=== PATIENT | male | born 1965 | race Caucasian/White ===

== ENCOUNTER 2017-11-11 14:19 | Emergency (ER) | payer OTHER, SELFPAY ==
[2017-11-11 14:23] VITALS: BP 112/69; PULSE 82; RESP 14; TEMP 36.8; O2SAT 97; BMI 24.2
--- NOTE | 2017-11-11 15:29 | ED.BACK ---
HPI - Back Pain/Injury <GIL Beltre - Last Filed: 11/11/17 21:23> General Chief Complaint: Back Pain/Injury Stated Complaint: lower back pain Time Seen by Provider: 11/11/17 15:29 History of Present Illness HPI Narrative: 51-year-old healthy male here for complaint of pain into his lumbar region bilaterally. 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 He was in the wagon driver seat wearing a seatbelt when this happened he states that the drop of the forks caused the forklift to bounce around significantly causing pain into his lower back. He denies any other injury or concerns at this point. He is ambulatory into the emergency room. He denies any loss of bladder or bowel control. Pain is limited to the lower back region. MD Complaint: back pain Related Data Previous Rx's Medication Instructions Recorded cyclobenzaprine 10 mg PO TID PRN #12 tab 11/11/17 Allergies Allergy/AdvReac Type Severity Reaction Status Date / Time No Known Drug Allergies Allergy Verified 11/11/17 14:22 Review of Systems <GIL Beltre - Last Filed: 11/11/17 21:23> Constitutional Denies chills, Denies fever(s), Denies lethargy and Denies weakness Eyes Denies change in vision, Denies eye discharge, Denies irritation and Denies loss of vision ENT Ears, Nose, Mouth, and Throat: Denies change in voice, Denies neck pain and Denies sore throat Cardiovascular Denies chest pain, Denies irregular heart rhythm, Denies lightheadedness, Denies palpitations, Denies dyspnea, Denies dyspnea on exertion and Denies orthopnea Respiratory Denies cough, Denies dyspnea, Denies dyspnea on exertion and Denies wheezing Gastrointestinal Gastrointestinal: Denies abdominal pain, Denies change in bowel habits, Denies diarrhea, Denies nausea and Denies vomiting Genitourinary Denies hematuria, Denies flank pain, Denies urinary incontinence and Denies urinary urgency Musculoskeletal Denies neck pain Comments: Lower back pain Integumentary/Breasts Denies pruritus, Denies erythema, Denies rash and Denies wounds Neurologic Denies confusion, Denies loss of vision and Denies weakness Psychiatric Denies anxiety, Denies confusion, Denies depression, Denies homicidal ideation and Denies suicidal ideation Endocrine Denies palpitations Hematologic/Lymphatic Denies easy bruising Allergic/Immunologic Denies wheezing Exam <GIL Beltre - Last Filed: 11/11/17 21:23> Initial Vital Signs Initial Vital Signs: Vital Signs Temperature 98.2 F 11/11/17 14:23 Pulse Rate 82 11/11/17 14:23 Respiratory Rate 14 11/11/17 14:23 Blood Pressure 112/69 11/11/17 14:23 Pulse Oximetry 97 11/11/17 14:23 Const General: cooperative and well developed Nutritional Appearance: well nourished Orientation: alert, awake, oriented x3 and not confused HENMT Mouth: oral mucosae normal, oropharynx normal and moist mucous membranes Eyes Conjunctivae: conjunctivae normal Sclera: sclerae normal Pupils: PERRL EOM: EOM intact bilaterally Resp Effort & Inspection: normal respiratory effort, able to speak in complete sentences, no respiratory distress and no use of accessory muscles Auscultation: clear to auscultation bilaterally, no rales, no rhonchi and no wheezes Cardio Rate: regular rate Rhythm: regular rhythm Heart Sounds: no click, no gallops, no murmurs and no rubs Pulses: normal peripheral pulses Back/Spine/Pelvis Other: Tenderness to paraspinals of lumbar spine. No deformities. No ecchymosis. No open lesions. Muscle spasm to right lumbar paraspinals. Skin General: no rashes or lesions noted, No jaundice and No petechiae Neuro General: alert, oriented x3, gait normal and no focal motor deficits Speech: speech normal Motor: muscle tone normal throughout and strength 5/5 throughout Sensory Exam: no sensory deficits noted Extrem Right lower extremity: normal to inspection and full ROM Left lower extremity: normal to inspection and full ROM <Kendra Javed MD - Last Filed: 11/12/17 10:55> Initial Vital Signs Initial Vital Signs: Vital Signs Temperature 98.2 F 11/11/17 14:23 Pulse Rate 82 11/11/17 14:23 Respiratory Rate 14 11/11/17 14:23 Blood Pressure 112/69 11/11/17 14:23 Pulse Oximetry 97 11/11/17 14:23 Course <GIL Beltre - Last Filed: 11/11/17 21:23> Orders Ordered: ED Orders 11/11/17 16:01 CT lumbar spine wo con Stat Vital Signs - 8 hr 11/11/17 14:23 11/11/17 16:23 Temperature 98.2 F 98.4 F Pulse Rate 82 72 Respiratory Rate 14 16 Blood Pressure 112/69 Blood Pressure [Right Arm] 128/75 H Pulse Oximetry 97 95 <Kendra Javed MD - Last Filed: 11/12/17 10:55> Orders Ordered: ED Orders 11/11/17 16:01 CT lumbar spine wo con Stat Vital Signs - 8 hr 11/11/17 14:23 11/11/17 16:23 Temperature 98.2 F 98.4 F Pulse Rate 82 72 Respiratory Rate 14 16 Blood Pressure 112/69 Blood Pressure [Right Arm] 128/75 H Pulse Oximetry 97 95 MDM - Back Pain/Injury <GIL Beltre - Last Filed: 11/11/17 21:23> Imaging Data L spine : Radiologist's impression: Patient: Linwood Marroquin MR#: [id number] : 1965 Acct:[id number] Age/Sex: 51 / M Date of Service: 11/11/17 Loc: ED Accession Number: [id number] Procedure: CT lumbar spine wo con Ordering Provider: Viral Rich PROCEDURE: CT LUMBAR SPINE WO CON INDICATIONS: Lumbar pain after forklift malfunction causing forks to drop TECHNIQUE: Noncontrast 3 mm thick sections acquired from the T12 level to the sacrum. Sagittal and coronal reformats were constructed. For radiation dose reduction, the following was used: automated exposure control. COMPARISON: None. FINDINGS: Image quality: Excellent. Bones: There is normal bony alignment. No acute vertebral body compression fractures. No suspicious lytic or blastic bony lesions. Central spinal caliber is of normal overall caliber. No pars defects. Ankdfpfv-bh-xcbqps L5-S1 degenerative disc changes. Mild L1-L2, L3-L4 and L4-L5 degenerative changes. Soft tissues: No retroperitoneal masses or hematomas. Visualized aorta is normal in caliber. IMPRESSION: No fracture. No acute osseous lesion. If symptoms and/or clinical suspicion for pathology persists, evaluation with MRI may be helpful for further assessment. Dictated by: Jana Bryant MD, PhD on 11/11/2017 at 15:21 Approved by: Jana Bryant MD, PhD on 11/11/2017 at 15:27 [facility] Narrative Medical decision making narrative: CT lumbar spine was obtained was negative for any fractures or acute findings. Signs and symptoms presents as acute lower back pain and strain secondary to the the bouncing of the forklift. Cyclobenzaprine as prescribed to help with muscle spasms. Kfgm-brn-iezhnce ibuprofen as needed for any discomfort. Follow up with primary care provider next week for re-evaluation. For any worsening symptoms return to the emergency room. Discharge Plan Departure Patient Disposition: Home, Self-Care Clinical Impression: Strain of lumbar region Discharge Date/Time: 11/11/17 16:48 Interventions: ED Discharge Assessment Last Done: 11/11/17 16:48 Instructions: DI for Low Back Pain, DI for Back Strain or Sprain Activity Restrictions/Additional Instructions: CT lumbar spine was obtained was negative for any fractures or acute findings. Signs and symptoms presents as acute lower back pain and strain secondary to the the bouncing of the forklift. Cyclobenzaprine a muscle relaxer as prescribed to help with muscle spasms. Do not drive while on the muscle relaxers a can make you drowsy. Meiv-skj-dkegjbn ibuprofen as needed for any discomfort. Follow up with primary care provider next week for re-evaluation. For any worsening symptoms return to the emergency room. Prescriptions: New cyclobenzaprine 10 mg tablet 10 mg PO TID PRN (Reason: muscle spasm) Qty: 12 RF: 0 Referrals: [facility] [Provider Group] Stand Alone Forms: Work/School Restrictions <Kendra Javed MD - Last Filed: 11/12/17 10:55> Sign Out Provider Sign Out Attestation: I was immediately available in the department for consultation. This documentation has been reviewed and I agree with assessment and plan. Supervised by Kendra Javed MD
--- NOTE | 2017-11-11 16:01 | DI.CT.S_ITS ---
PROCEDURE: CT LUMBAR SPINE WO CON INDICATIONS: Lumbar pain after forklift malfunction causing forks to drop TECHNIQUE: Noncontrast 3 mm thick sections acquired from the T12 level to the sacrum. Sagittal and coronal reformats were constructed. For radiation dose reduction, the following was used: automated exposure control. COMPARISON: None. FINDINGS: Image quality: Excellent. Bones: There is normal bony alignment. No acute vertebral body compression fractures. No suspicious lytic or blastic bony lesions. Central spinal caliber is of normal overall caliber. No pars defects. Kuvajgro-wy-fizheh L5-S1 degenerative disc changes. Mild L1-L2, L3-L4 and L4-L5 degenerative changes. Soft tissues: No retroperitoneal masses or hematomas. Visualized aorta is normal in caliber. IMPRESSION: No fracture. No acute osseous lesion. If symptoms and/or clinical suspicion for pathology persists, evaluation with MRI may be helpful for further assessment. Dictated by: Jana Bryant MD, PhD on 11/11/2017 at 15:21 Approved by: Jana Bryant MD, PhD on 11/11/2017 at 15:27
[2017-11-11 16:23] VITALS: BP 128/75; PULSE 72; RESP 16; TEMP 36.9; O2SAT 95
== END 2017-11-11 16:48 | disposition home or self-care (01) ==
PROVIDERS: Emergency Provider Nurse Practitioner Family
DX: S39.012A Strain of muscle, fascia and tendon of lower back, initial encounter (principal); V83.5XXA Driver of special industrial vehicle injured in nontraffic accident, initial encounter; Y99.0 Civilian activity done for income or pay
CPT/HCPCS: 72131; 99282; 99284